=== PATIENT | male | born 1990 | race Two or more races ===

== ENCOUNTER 2018-07-14 18:56 | Emergency (ER) | payer SELFPAY ==
[2018-07-14 18:57] VITALS: BP 132/88; PULSE 109; RESP 16; TEMP 37; O2SAT 96; BMI 29.5
--- NOTE | 2018-07-14 19:25 | ED.DCSUM_ITS ---
- ER Visit Summary Date of Service: 07/14/18 Chief Complaint: Sore throat and right ear pain History of Present Illness: The patient is a 27 M who presents with a sore throat and right ear pain that began yesterday. Patient states the pain began in his throat. Patient states several family members have been sick with sore throat recently. Patient admits to subjective fevers at home. Patient also admits to a cough and some shortness of breath. Patient states he has some burning in his chest. Patient admits to coughing up some blood-streaked sputum. Patient denies any nausea, vomiting, or diarrhea. Physical Examination: Vital signs are stable except for mild tachycardia of 109. Patient is afebrile. Patient is in no acute distress. Oral mucosa is pink and moist. Oropharynx is erythematous. There are no exudates noted on the tonsils bilaterally. The right tympanic membrane is erythematous. The left tympanic membrane is clear. Neck is supple. Trachea is midline. There is tender anterior cervical lymphadenopathy, worse on the right. Heart was regular rate and rhythm. Lungs are clear and equal bilaterally. Cranial nerves II through XII are intact. There are no focal motor or sensory deficits noted. Emergency Department Course and Treatment: Patient was given a prescription for amoxicillin. Patient was instructed to continue Tylenol or ibuprofen as needed for fevers and pain. Patient was instructed to drink plenty of fluids. Patient was instructed to follow-up with his primary care physician in 7-10 days. Patient understood and was agreeable with the plan. All questions were answered. Disposition: Discharged home Impression: Right otitis media This note was generated with [employer] dictation software. It may contain incorrect words, spelling, and punctuation that were not noted in review of the chart prior to signing ED Disposition - Plan for ED Patient: Disposition: Home or Assisted Living Chief Complaint: Sore Throat Diagnosis: Right otitis media Instructions: ED Otitis Media Acute Adult Referrals: NOT,DEFINED [Primary Care Provider] -
[2018-07-14] MEDS: AMOXICILLIN 500 MG CAPSULE PO (19:34)
--- NOTE | 2018-07-14 19:36 | ED.RN ---
PT GIVEN WRITTEN AND VERBAL DISCHARGE INSTRUCTIONS AND HOME GOING PRESCRIPTIONS. PT VERBALIZES UNDERSTANDING AND DENIES ANY FURTHER QUESTIONS. PT AMBULATES OUT OF DEPT WITH SIGNIFICANT OTHER.
--- OUTSIDE RECORDS SUMMARY | 2018-10-16 13:54 | XMS RPT_ITS ---
:1990 Author Organization [facility] Care Team Providers Name Role Phone Ang Cochran Attending Unavailable Primay Care Physicia, No Primary Care Unavailable PROBLEMS PROBLEMS No Problem Records FoundPROCEDURES PROCEDURES No Procedure Records FoundRESULTS RESULTS EMERGENCY DEPARTMENT Observed: 07/14/2018 Status: F Source: POWER SUMMARY 7:30 PM [facility] [place] [facility] Medical Records Department [address] [place] [address] Emergency Department Summary 07/14/18 1921 MR#: [id number] Acct: [id number] Name: GARRET FARRELL Rep #: [id number] : 1990 27 From: Ang Cochran DO PCP: Care Physician, No Primary Status: REG ER - ER Visit Summary Date of Service: 07/14/18 Chief Complaint: Sore throat and right ear pain History of Present Illness: The patient is a 27 M who presents with a sore throat and right ear pain that began yesterday. Patient states the pain began in his throat. Patient states several family members have been sick with sore throat recently. Patient admits to subjective fevers at home. Patient also admits to a cough and some shortness of breath. Patient states he has some burning in his chest. Patient admits to coughing up some blood-streaked sputum. Patient denies any nausea, vomiting, or diarrhea. Physical Examination: Vital signs are stable except for mild tachycardia of 109. Patient is afebrile. Patient is in no acute distress. Oral mucosa is pink and moist. Oropharynx is erythematous. There are no exudates noted on the tonsils bilaterally. The right tympanic membrane is erythematous. The left tympanic membrane is clear. Neck is supple. Trachea is midline. There is tender anterior cervical lymphadenopathy, worse on the right. Heart was regular rate and rhythm. Lungs are clear and equal bilaterally. Cranial nerves II through XII are intact. There are no focal motor or sensory deficits noted. Emergency Department Course and Treatment: Patient was given a prescription for amoxicillin. Patient was instructed to continue Tylenol or ibuprofen as needed for fevers and pain. Patient was instructed to drink plenty of fluids. Patient was instructed to follow-up with his primary care physician in 7-10 days. Patient understood and was agreeable with the plan. All questions were answered. Disposition: Discharged home Impression: Right otitis media This note was generated with [employer] dictation software. It may contain incorrect words, spelling, and punctuation that were not noted in review of the chart prior to signing ED Disposition - Plan for ED Patient: Disposition: Home or Assisted Living Chief Complaint: Sore Throat Diagnosis: Right otitis media Instructions: ED Otitis Media Acute Adult Referrals: NOT,DEFINED [Primary Care Provider] - What to do if you have Problems For any increased pain, shortness of breath, bleeding, nausea or vomiting, chest pain, or any unexpected problems, contact your Primary Care Provider. Call [facility] ([phone]) or report to the closest Emergency Room. Call 911 if necessary. 07/14/181929 <Electronically signed by Ang Cochran DO> Date Ang Cochran DO Cosigner Signature (If Indicated): Date CC: No Primary Care Physician ALLERGIES ALLERGIES DATE TYPE / CODE NAME / CODE REACTION SEVERITY SOURCE 07/14/2018 Drug No Known Unknown Dorothy [facility] Allergy/4160 Allergies/F00 [facility] [address](SNOMED [id number](RXNOR Repository CT) M) ENCOUNTERS ENCOUNTERS ADMIT/DISCHARGE ACCOUNT ADMITTING ENCOUNTER LOCATION SOURCE NUMBER CLASS 07/14/2018/ [id number] Emergency Dorothy Dorothy 8 [facility] ing:ED Repository PAYERS PAYERS ENCOUNTER GUARANTOR PAYER SUBSCRIBER SOURCE 07/14/2018 GARRET Jeter Primary NOT GIVENUNK Dorothy [id number] Insurance:SELF PAY [place], [place] Number: Effective Repository [id number]: [id number] Date:2018-07-14 [phone] ()
== END 2018-07-14 19:37 | disposition home or self-care (01) ==
PROVIDERS: Emergency Provider Emergency Medicine
DX: H66.91 Otitis media, unspecified, right ear (principal); R04.2 Hemoptysis; R06.02 Shortness of breath; K21.9 Gastro-esophageal reflux disease without esophagitis; F17.200 Nicotine dependence, unspecified, uncomplicated
CPT/HCPCS: 99283